=== PATIENT | female | born 1935 | race Caucasian/White ===

== ENCOUNTER 2023-08-28 13:27 | Inpatient (IN) | payer MEDICARE, OTHER ==
[~2023-08-28] VITALS: Ht 167.6 cm; Wt 77.1 kg
[2023-08-28] MEDS: cefazolin 2gm/D5W 100mL 100 ML IV ONE (08:50)
[~2023-08-28 13:27] MED LIST: AMLO5TAB16 PO; CARV3.122 PO; FLUT16SP26 BOTHNARES; FURO20TA4 PO; LOSA50TA64 PO; OMEP40CA21 PO; PRAM0.5T12 PO; ZAR2.5T PO
[2023-08-28] MEDS ORDERED: metolazone 2.5mg tablet PO PRN ×2 (16:50→17:27)
[2023-08-28] MEDS ORDERED: furosemide 20MG tablet PO PRN (16:50)
[2023-08-28 17:00] VITALS: BP 124/55; PULSE 61; RESP 18; TEMP 98.4; O2SAT 97
[2023-08-28] MEDS: ringers solution, lacted 1,000 ML IV SCH (17:37)
[2023-08-28] MEDS: HYDROcodone/acetaminophen 5mg/325mg tablet PO PRN (18:26)
[2023-08-28] MEDS: fluticasone nasal spray 16GM bottle NS SCH (19:44)
[2023-08-28 19:48] VITALS: BP 117/55; PULSE 63
[2023-08-28] MEDS: losartan 50mg tablet PO SCH (19:49)
[2023-08-28] MEDS: famotidine 20mg tablet PO ONE (19:49)
[2023-08-28] MEDS: pramipexole 0.25mg tablet PO SCH (19:50)
[2023-08-28] MEDS: carVEDilol 3.125mg tablet PO SCH (19:50)
[2023-08-28 20:00] VITALS: RESP 18; O2SAT 95
[2023-08-28 22:00] VITALS: BP 122/54; PULSE 60; RESP 18; TEMP 98.1; O2SAT 95
[2023-08-29] VITALS (20 sets, daily range): BP systolic 104–148; BP diastolic 40–70; PULSE 53–70; RESP 14–18; TEMP 97.5–98.5; O2SAT 95–100
[2023-08-29] MEDS ORDERED: BUPIVAcaine/PF 2.5mg/ml (0.25%) 10ml vial ONE (05:48)
[2023-08-29] MEDS ORDERED: bacitracin 15gm ointment TP ONE (05:49)
[2023-08-29] MEDS ORDERED: sevoflurane 250ml liquid IH ONE (07:00)
[2023-08-29] MEDS ORDERED: proCHLORperazine 10 MG/2 ml inj IV PRN (07:10)
[2023-08-29] MEDS ORDERED: enalaprilat dihydrate 2.5mg/2ml vial IV PRN (07:10)
[2023-08-29] MEDS ORDERED: ondansetron/PF 4mg/2ml inj IV PRN (07:10)
[2023-08-29] MEDS ORDERED: meperidine/PF 25mg/ml syringe IV PRN ×3 (07:10)
[2023-08-29] MEDS ORDERED: ringers solution, lacted 1,000 ML IV SCH (07:10)
[2023-08-29] MEDS ORDERED: labetalol 20mg/4ml (5mg/ml) syringe IV PRN (07:10)
[2023-08-29] MEDS ORDERED: morphine 4 MG/ML inj SYRINge IV PRN (07:10)
[2023-08-29] MEDS ORDERED: morphine 2 MG/ML inj. syringe IV PRN (07:10)
[2023-08-29] MEDS ORDERED: fentaNYL/PF 50MCG/1 ML 2ML syringe ONE (07:13)
[2023-08-29] MEDS ORDERED: midazolam 1 mg/ML 2ml injection ONE (07:14)
[2023-08-29] MEDS ORDERED: propofol inj 20 ML IV ONE (07:21)
[2023-08-29] MEDS ORDERED: ROPIVAcaine 0.5% (5mg/ml) 30ml vial ONE (07:21)
[2023-08-29] MEDS ORDERED: LIDOcaine 2% (20mg/ml) 5ml vial ONE (07:21)
[2023-08-29 07:25] LABS: BASOPHILS % (AUTO) 0 % (0-1); EOSINOPHILS % (AUTO) 0 % (0-6); LYMPHOCYTES # (AUTO) 1.9 X10'3 (1.1-4.8); LYMPHOCYTES % (AUTO) 30.5 % (21-51); MEAN CORPUSCULAR HGB CONC 33.7 g/dL (33.0-36.5); MEAN CORPUSCULAR VOLUME 94.7 FL (78-98); MEAN PLATELET VOLUME 6.1 FL (7.4-10.4); MONOCYTES # (AUTO) 0.7 X10'3 (0-0.9); MONOCYTES % (AUTO) 11.2 % (2-12); NEUTROPHILS # (AUTO) 3.7 X10'3 (1.8-7.7); NEUTROPHILS % (AUTO) 58.3 % (42-75); PRE OP HEMATOCRIT 31.8 % (35.0-45.0); PRE OP PLATELET COUNT 338 X10'3 (140-440); PRE OP WHITE BLOOD COUNT 6.3 10'3 (4.8-10.8); RED BLOOD COUNT 3.35 X10'6 (4.20-5.60); RED CELL DISTRIBUTION WIDTH 13.5 % (11.5-14.5)
[2023-08-29 07:31] LABS: PROTHROMBIN TIME 10.9 SECONDS (9.0-12.0)
[2023-08-29 07:33] LABS: PRE OP HEMOGLOBIN 10.7 g/dL (12.0-16.0)
[2023-08-29] MEDS ORDERED: ceFAZolin 1000mg inj ONE ×2 (07:36)
[2023-08-29] MEDS ORDERED: ondansetron/PF 4mg/2ml inj ONE (07:37)
[2023-08-29] MEDS ORDERED: dexamethasone sod phosphate 4mg/ml inj. ONE (07:37)
[2023-08-29] MEDS: amLODIPine 5mg tablet PO SCH (08:00)
[2023-08-29] MEDS: pantoprazole 40mg Tablet.DR PO SCH (08:00)
[2023-08-29 08:01] LABS: ALBUMIN 3.1 G/DL (3.4-5.0); ALBUMIN/GLOBULIN RATIO 1.1 (1.1-1.5); ALKALINE PHOSPHATASE 82 IU/L (46-116); BLOOD UREA NITROGEN 19 MG/DL (7-18); CALCIUM 8.1 MG/DL (8.5-10.1); CHLORIDE 99 MMOL/L (99-107); CREATININE 0.73 MG/DL (0.40-0.90); PRE OP ALT 24 U/L (30-65); PRE OP ANION GAP 7 (8-16); PRE OP AST 29 U/L (10-37); PRE OP BILIRUB, TOTAL 0.5 MG/DL (0.0-1.0); PRE OP GLUCOSE 81 MG/DL (70-104); PRE OP POTASSIUM 3.7 MMOL/L (3.4-5.1); PRE OP SODIUM 133 MMOL/L (135-145); TOTAL CARBON DIOXIDE 27.1 MMOL/L (24-32); eCRCL 52 ML/MIN; eGFR 76 ML/MIN
[2023-08-29] MEDS ORDERED: naloxone 0.4 mg/ml inj IV PRN (08:25)
[2023-08-30] MEDS: docusate sod 100mg capsule PO SCH (00:17)
[2023-08-30] MEDS: calcium carbonate 500mg chew tablet PO PRN (04:57)
[2023-08-30 06:00] VITALS: BP 142/64; PULSE 78; RESP 16; TEMP 97.7; O2SAT 95
[2023-08-30] MEDS: magnesium hydroxide 30ml (MOM) UD suspension PO PRN (07:24)
[2023-08-30 07:49] LABS: % IRON SATURATION 15 % (11-46); IRON 46 UG/DL (49-151); TOTAL IRON BINDING CAPACITY 301 UG/DL (259-388)
[2023-08-30] MEDS ORDERED: POTA99CA (09:09)
[2023-08-30] MEDS ORDERED: MELA10TA2 PO (09:09)
[2023-08-30] MEDS ORDERED: LACT1CAP65 PO (09:09)
[2023-08-30] MEDS ORDERED: CHOL50002 PO (09:09)
[2023-08-30] MEDS ORDERED: ASPI-1265 PO (09:09)
[2023-08-30] MEDS ORDERED: MULT-381 PO (09:09)
[2023-08-30] MEDS ORDERED: AMLO2.5T2 PO (09:09)
[2023-08-30] MEDS ORDERED: CALC-1040 (09:09)
[2023-08-30] MEDS ORDERED: COLL1POW3 PO (09:09)
[2023-08-30] MEDS ORDERED: MAGN400C PO (09:09)
[2023-08-30] MEDS ORDERED: CRAN500C4 PO (09:09)
[2023-08-30] MEDS ORDERED: ASCO-349 PO (09:09)
[2023-08-30] MEDS: ondansetron/PF 4mg/2ml inj IV PRN (12:20)
[2023-08-30] MEDS: mag hydrox/Alum hydrox/simeth 30ml oral suspension PO PRN (12:44)
[2023-08-30] MEDS ORDERED: furosemide 20MG tablet PO PRN (13:25)
[2023-08-30 14:07] LABS: BASOPHILS % (AUTO) 0.4 % (0-1); EOSINOPHILS % (AUTO) 0 % (0-6); HEMATOCRIT 30.8 % (35.0-45.0); HEMOGLOBIN 10.5 g/dl (12.0-16.0); LYMPHOCYTES # (AUTO) 1.6 X10'3 (1.1-4.8); LYMPHOCYTES % (AUTO) 17.2 % (21-51); MEAN CORPUSCULAR HEMOGLOBIN 32.3 PG (27.0-31.0); MEAN CORPUSCULAR VOLUME 95.1 FL (78-98); MEAN PLATELET VOLUME 6.9 FL (7.4-10.4); MONOCYTES # (AUTO) 0.7 X10'3 (0-0.9); MONOCYTES % (AUTO) 7.8 % (2-12); NEUTROPHILS # (AUTO) 7.1 X10'3 (1.8-7.7); NEUTROPHILS % (AUTO) 74.6 % (42-75); PLATELET COUNT 326 X10'3 (140-440); RED BLOOD COUNT 3.24 X10'6 (4.20-5.60); RED CELL DISTRIBUTION WIDTH 13.6 % (11.5-14.5); WHITE BLOOD COUNT 9.6 X10'3 (4.5-11.0)
[2023-08-30 14:11] LABS: ALANINE AMINOTRANSFERASE 23 U/L (12-78); ALBUMIN 3.2 G/DL (3.4-5.0); ALBUMIN/GLOBULIN RATIO 1.1 (1.1-1.5); ALKALINE PHOSPHATASE 81 IU/L (46-116); ANION GAP 9 (8-16); ASPARTATE AMINO TRANSFERASE 25 U/L (10-37); BILIRUBIN,TOTAL 0.3 MG/DL (0.1-1.0); BLOOD UREA NITROGEN 21 MG/DL (7-18); BUN/CREATININE RATIO 25.9 (10.0-20.0); CALCIUM 9.5 MG/DL (8.5-10.1); CHLORIDE 99 MMOL/L (99-107); CREATININE 0.81 MG/DL (0.40-0.90); GLUCOSE 97 MG/DL (70-104); POTASSIUM 4.1 MMOL/L (3.5-5.1); SODIUM 133 MMOL/L (135-145); TOTAL CARBON DIOXIDE 24.9 MMOL/L (24-32); eCRCL 47 ML/MIN; eGFR 67 ML/MIN
[2023-08-30] MEDS: pantoprazole 40mg Tablet.DR PO SCH (21:00)
[2023-08-30 22:00] VITALS: BP 112/43; PULSE 60; RESP 15; TEMP 98.1; O2SAT 96
[2023-08-31 06:00] VITALS: BP 108/45; PULSE 60; RESP 18; TEMP 97.9; O2SAT 94
[2023-08-31 08:00] VITALS: RESP 18
[2023-08-31] MEDS: amLODIPine 2.5mg tablet PO SCH (08:30)
[2023-08-31 10:00] VITALS: BP 100/42; PULSE 59; RESP 14; TEMP 97.7; O2SAT 91
[2023-08-31 18:00] VITALS: BP 160/49; PULSE 60; RESP 16; TEMP 97.6; O2SAT 94
[2023-08-31 22:00] VITALS: BP 109/51; PULSE 60; RESP 14; TEMP 97.9; O2SAT 97
[2023-09-01 06:00] VITALS: BP 155/56; PULSE 80; RESP 17; TEMP 97.9; O2SAT 96
[2023-09-01 08:00] VITALS: RESP 14; O2SAT 96
[2023-09-01 10:00] VITALS: BP 134/47; PULSE 59; RESP 14; TEMP 97.7; O2SAT 96
[2023-09-01 10:09] LABS: ALANINE AMINOTRANSFERASE 17 U/L (12-78); ALBUMIN 2.7 G/DL (3.4-5.0); ALBUMIN/GLOBULIN RATIO 0.9 (1.1-1.5); ALKALINE PHOSPHATASE 81 IU/L (46-116); ANION GAP 8 (8-16); ASPARTATE AMINO TRANSFERASE 17 U/L (10-37); BILIRUBIN,TOTAL 0.3 MG/DL (0.1-1.0); BLOOD UREA NITROGEN 28 MG/DL (7-18); BUN/CREATININE RATIO 29.5 (10.0-20.0); CALCIUM 8.2 MG/DL (8.5-10.1); CHLORIDE 99 MMOL/L (99-107); CREATININE 0.95 MG/DL (0.40-0.90); GLUCOSE 142 MG/DL (70-104); POTASSIUM 4.4 MMOL/L (3.5-5.1); SODIUM 129 MMOL/L (135-145); TOTAL CARBON DIOXIDE 22.5 MMOL/L (24-32); TOTAL PROTEIN 5.6 G/DL (6.4-8.2); eCRCL 40 ML/MIN; eGFR 56 ML/MIN
== END 2023-09-01 12:45 | DRG 496 ==
LOC: PAS IN 13:27 → ORTHO 4S 16:10
PROVIDERS: ADMIT Podiatrist Foot & Ankle Surgery; ATTEND Podiatrist Foot & Ankle Surgery
PROC: 0SGM04Z Fusion of Right Metatarsal-Phalangeal Joint with Internal Fixation Device, Open Approach (ICD-10-PCS; 2023-08-29)
PROC: 0QSN04Z Reposition Right Metatarsal with Internal Fixation Device, Open Approach (ICD-10-PCS; 2023-08-29)
PROC: 3E0T3BZ Introduction of Anesthetic Agent into Peripheral Nerves and Plexi, Percutaneous Approach (ICD-10-PCS; 2023-08-29)
PROC: 3E0T33Z Introduction of Anti-inflammatory into Peripheral Nerves and Plexi, Percutaneous Approach (ICD-10-PCS; 2023-08-29)
PROC: 0QPN04Z Removal of Internal Fixation Device from Right Metatarsal, Open Approach (ICD-10-PCS; principal; 2023-08-29 07:00)
DX: S92.311A Displaced fracture of first metatarsal bone, right foot, initial encounter for closed fracture (principal); I50.32 Chronic diastolic (congestive) heart failure; M25.374 Other instability, right foot; M20.41 Other hammer toe(s) (acquired), right foot; G47.33 Obstructive sleep apnea (adult) (pediatric); M81.8 Other osteoporosis without current pathological fracture; G25.81 Restless legs syndrome; K21.9 Gastro-esophageal reflux disease without esophagitis; I11.0 Hypertensive heart disease with heart failure; X58.XXXA Exposure to other specified factors, initial encounter; Y93.89 Activity, other specified; Y92.89 Other specified places as the place of occurrence of the external cause; Y99.8 Other external cause status; Z85.3 Personal history of malignant neoplasm of breast; Z85.42 Personal history of malignant neoplasm of other parts of uterus; Z92.21 Personal history of antineoplastic chemotherapy; Z92.3 Personal history of irradiation
CPT/HCPCS: 36415; 71045; 73560; 73620; 76000; 80053; 82948; 83540; 83550; 85025; 85610; 93005; 97161; 97530; A4618; A6222; A6253; A6449; A7000; G0378; J0690; J1100; J2250; J2405; J2704; J2795; J3010; J3490; J7120

== ENCOUNTER 2025-06-16 16:09 | Emergency (ER) | payer MEDICARE, OTHER ==
[~2025-06-16] VITALS: Ht 167.6 cm; Wt 84.4 kg
[~2025-06-16 16:09] MED LIST changes: +AMLO2.5T2 PO; +ASCO-349 PO; +ASPI-1265 PO; +CALC-1040; +CHOL50002 PO; +COLL1POW3 PO; +CRAN500C4 PO; +LACT1CAP65 PO; +MAGN400C PO; +MELA10TA37 PO; +MULT-381 PO; +POTA99CA
[2025-06-16 16:13] VITALS: BP 157/72; PULSE 82; O2SAT 98
--- NOTE | 2025-06-16 18:27 | Physician Documentation ---
History of Present Illness ~ Chief Complaint: Extremity Swelling Stated Complaint: LEG SWELLING Time Seen by MD: 18:13 OK to notify your PCP?: Yes Source: patient Mode of Arrival: POV Exam Limitations: no limitations HPI Patient reports having low back pain which is radiating down her left leg. She is also complaining of pain and swelling of her bilateral lower extremities. She reports that she was recently seen at the [facility] 2-3 weeks ago and told that her veins are not the cause of her swelling, that it is lymph edema and referred to a clinic for treatment. She reports that she has also seen a hand touch up painter 2 months ago and been told that the swelling is not due to her heart, her echocardiogram was normal with an ejection fraction of 65%. She denies having any falls or trauma. She was seen by her PCP today and told to come to the ER. Denies any saddle anesthesia, or bowel or bladder incontinence. Patient's son reports that last week she was able to shuffle around the home and now is in too much pain to be able to walk. He has tried using compression wraps to help with the lymphedema but reports it it is too painful to wear. She does have compression stockings at home but reports that she is unable to get them on. She has already taken tramadol and Rush for pain relief. Medication Reconciliation Allergies: Coded Allergies: No Known Allergies (Unverified , 06/06/23) Scheduled Amlodipine Besylate (Amlodipine Besylate), 1 TAB PO DAILY, (Reported) Amlodipine* (Norvasc*), 1 TAB PO DAILY, (Reported) Aspirin (Aspirin), 1 TAB PO DAILY, (Reported) Carvedilol (Carvedilol), 1 TAB PO BID, (Reported) Cholecalciferol (Vitamin D3) (D3-50), 1 CAP PO DAILY, (Reported) Cranberry Extract (Cranberry), 1 CAP PO Q12H, (Reported) Fluticasone Propionate (Fluticasone Propionate), 1 SPRAYS BOTHNARES BID, (Reported) Losartan Potassium (Losartan Potassium), 1 TAB PO BID, (Reported) Magnesium Oxide (Magnesium), 400 MG PO BID, (Reported) Melatonin (Melatonin), 1 TAB PO HS, (Reported) Multivitamin with Minerals (Daily Vitamin Formula-Minerals), PO BID, (Reported) Omeprazole (Prilosec), 1 CAP PO DAILY, (Reported) Pramipexole Di-Hcl (Pramipexole Dihydrochloride), 1 TAB PO HS, (Reported) Prednisone (Prednisone), 4 TAB PO DAILY Scheduled PRN Furosemide (Furosemide), 1 TAB PO DAILY PRN for SWELLING, (Reported) Metolazone (ZAROXOLYN tablet), 1 TAB PO Q7D PRN for ANKLE SWELLING, (Reported) Miscellaneous Medications Ascorbic Acid (C-500), 500 MG PO, (Reported) Calcium Phosphate Trib/Vit D3 (Calcium + Vitamin D3 Gummies), Unknown Dose, (Reported) Collagen, Hydrolysate (Bovine) (Collagen Hydrolysate), 2 SCOOP PO, (Reported) Lactobacillus Acidophilus (Probiotic), 1 EACH PO, (Reported) Potassium Citrate (Potassium), Unknown Dose, (Reported) Past Medical History Other Past Medical History: Lymphedema Past Surgical History: noncontributory Patient History: Patient reports no known family medical history. Lives In: Home Occupation: retired Review of Systems All Other Systems at this time: Reviewed and Negative Physical Exam Physical Exam Vital Signs: RN Vital Signs have been reviewed: Yes, Temperature: 98.0, Source: Oral, Heart Rate: 82, Respiratory Rate: 16, BP: 157/72, Pulse Oximetry: 98, Weight: 84.400 Oxygen Flow Rate: 0 Pulse Oximetry Reflects: adequate oxygenation Physical Exam General: Alert, no apparent distress. HEENT: PERRL, EOMI, no injection, moist mucous membranes. Neck: Full range of motion. Respiratory: Lungs clear, no respiratory distress. Chest: No accessory muscle use. Cardiovascular: Regular rate and rhythm, no murmurs. Gastrointestinal: Soft, nontender, nondistended. Bowels sounds present. Extremities: Normal range of motion, no deformity. Neurologic: Oriented x4. Psychiatric: Normal mood and affect. Skin: Normal color, warm and dry. 3+ pitting edema to bilateral lower extremities. Progress Results/Orders Reviewed/noted all lab results: Yes Results/Orders Orders - CONY CANELA Lumbar Spine Limited (06/16/25 18:14) Completed Orders - CONY CANELA Ketorolac Trometh 15mg/Ml Vial (Toradol (06/16/25 18:15) Lumbar Spine Limited (06/16/25 18:14) Prednisone Tablet (Prednisone Tablet) (06/16/25 18:55) Medications Received in ER Medications (Trade) Dose Ordered Sig/Niya Route PRN Reason Start Time Stop Time Status Last Admin Dose Admin (Toradol injection) 15 mg ONCE ONCE IM 06/16/25 18:15 06/16/25 18:18 DC 06/16/25 19:12 15 MG (predniSONE tablet) 40 mg ONCE ONCE PO 06/16/25 18:55 06/16/25 18:58 DC 06/16/25 19:11 40 MG Vital Signs 06/16/25 06/16/25 06/16/25 06/16/25 16:13 18:58 19:12 19:12 Temp 98.0 98.0 Pulse 82 Resp 16 17 17 B/P (MAP) 157/72 Pulse Ox 98 O2 Flow Rate 0 EKG/XRAY/CT/US/VASC/MRI Bone/Soft Tissue X-Ray (Spine) : Additional Comment Lumbar X ray as interpreted by me shows diffuse osteopenia, There are no acute fractures or subluxations. Medical Decision Making Additional information obtaine: old records, family Findings Recently been seen by hand touch up painter within the past 2 months as [facility] as [facility] and it has been said that her swelling in her legs is not due to her heart and is caused by lymphedema. At a scheduled appointment last week which got canceled and rescheduled for next week at [facility] physical therapy to help with this lymphedema. She is unable to wear her compression stockings or compression dressings due to the pain and swelling. She reports that she has been having this low back pain for the past couple of days is radiating down her left leg is likely exacerbated due to her increased leg swelling. She is not showing any symptoms of cauda equina, infection or recent trauma. There is osteopenia seen on her X ray, but there are no acute fractures or subluxations. Multilevel degenerative changes of the spine with degenerative disc space narrowing at multiple levels most prominent at L2-L3. Suggestion of neural foraminal stenosis at L5-S1. We discussed that if she continues having symptoms. She would benefit from outpatient treatment such as an MRI or possible physical therapy. She already takes tramadol and Rush at home for pain relief so I gave a Toradol injection. Advised her the NSAIDs are the first-line treatment for acute lumbar radiculopathy with a spinal stenosis pain. I have given her a short course of prednisone that may help with functional improvement due to the radicular pain. Currently lives alone and I advised that is since she is not as mobile as normal, she would benefit from staying with jj olivarez for help with the ADLs until she is able to see the lymphedema specialist. Differential Dx:Considerations: Other Differential Diagnosis Cauda equina syndrome, fracture, infection, malignancy. Departure Disposition: 01 HOME / SELF CARE / HOMELESS Impression: Primary Impression: Edema of lower extremity Condition: Stable Additional Instructions: Discussed if you continue having low back pain, you may benefit from further imaging such as an MRI which can be done on an outpatient basis. For the increased edema in your legs, seen a lymphedema specialist such as [facility] the scheduled next week. Try using your compression stockings and/or compression wraps. Her X ray shows: There are no acute fractures or subluxations. Diffuse osteopenia. Multilevel degenerative changes of the spine with degenerative disc space narrowing at multiple levels most prominent at L2-L3. Suggestion of neural foraminal stenosis at L5-S1. Please follow up with your regular doctor about these findings. Referrals: NO PRIMARY CARE PROVIDER (PCP) Prescriptions Prednisone (Prednisone) 10 Mg Tablet 4 TAB PO DAILY for 5 Days, #20 TAB Prov: CONY CANELA 06/16/25 Education Educated: Patient Educated regarding: diagnosis, treatment, prognosis, need for follow up Additional Comment Medical Screen Exam This patient recieved a medical screening examination. After reviewing the individual's medical complaints with presenting symptoms and performing an appropriate physical examination, it was determined that no immediate life- threatening emergency medical condition is present. This individual is also not a women having contractions. Signature Scribe Signature: . Attestation: Scribed for Cony Canela by Cony Hayes NP . 06/16/25 19:48 Parts of this note were created using [employer] voice recognition software program. While efforts were made to correct any mistakes made by this voice recognition software program, nonsensical phrases may remain in this note. In addition, there may be errors and syntax, grammar, content and spelling. CONY CANELA Jun 16, 2025 18:27
--- NOTE | 2025-06-16 18:49 | RADIOLOGY REPORT ---
INDICATION: spine pain with radiculopathy TECHNIQUE: 2 views of the lumbar spine were obtained. COMPARISON: None FINDINGS: There are no acute fractures or subluxations. Diffuse osteopenia. Multilevel degenerative changes of the spine with degenerative disc space narrowing at multiple levels most prominent at L2-L3. Suggestion of neural foraminal stenosis at L5-S1. IMPRESSION: No acute fracture or subluxation.
[2025-06-16] MEDS ORDERED: PRED10TA23 PO (19:08)
[2025-06-16 19:12] VITALS: RESP 17; TEMP 98
[2025-06-16] MEDS: ketorolac trometh 15mg/ml vial 15 MG/ML ML IM ONE (19:12)
== END 2025-06-16 19:19 | disposition home or self-care (01) ==
LOC: ER 16:10
DX: R60.0 Localized edema (principal); M54.50 Low back pain, unspecified; Z79.82 Long term (current) use of aspirin; Z79.899 Other long term (current) drug therapy
CPT/HCPCS: 72100; 96372; 99283; J1885; J7512